=== PATIENT | male | born 1965 | race Caucasian/White ===

== ENCOUNTER 2020-01-24 11:43 | Inpatient (IN) | payer OTHER ==
[~2020-01-24] VITALS: Ht 177.8 cm; Wt 77.1 kg
== END 2020-01-29 15:17 | disposition home or self-care (01) | DRG 603 ==
LOC: ER 11:43 → SEC-K 19:02 → SURG 19:02 → O/R 19:02 → SURG 23:46
PROVIDERS: ADMIT Surgery; ATTEND Surgery
PROC: 0W9F4ZZ Drainage of Abdominal Wall, Percutaneous Endoscopic Approach (ICD-10-PCS; principal; 2020-01-24 20:00)
DX: L02.211 Cutaneous abscess of abdominal wall (principal); K52.89 Other specified noninfective gastroenteritis and colitis; Z20.828 Contact with and (suspected) exposure to other viral communicable diseases